=== PATIENT | male | born 1950 | race Caucasian/White ===

== ENCOUNTER → 2016-07-04 | Outpatient (CLI) | payer BC ==
--- NOTE | 2016-07-04 07:54 | DIAGNOSTIC IMAGING REPORT ---
ORBIT RADIOGRAPHS 3 VIEWS HISTORY: Pre-MRI pre-MRI screening. COMPARISON: None. FINDINGS: There are no radiopaque foreign bodies identified within the orbits. IMPRESSION: No radiopaque foreign bodies identified within the orbits. Electronically signed by: Jeremiah Pringle M.D. 07/04/2016 7:53 AM Dictated Date/Time: 07/04/2016 7:52 AM
--- NOTE | 2016-07-04 10:54 | DIAGNOSTIC IMAGING REPORT ---
MRI right knee RIGHT LOWER EXT JOINT WITHOUT CLINICAL HISTORY: RIGHT KNEE PAIN Right pain. TECHNIQUE: Multi axial MRI acquisition COMPARISON STUDY: None FINDINGS: Unremarkable signal characteristics of the osseous structures. No significant bone marrow replacing process. No significant joint effusion. No significant popliteal cyst. Mild degenerative thinning of the articular services throughout. No evidence for osteochondritis. No significant chondromalacia patella. Medial and lateral patellar retinaculum are intact. menisci demonstrates the lateral meniscus to be remarkable for moderate maceration of the posterior horn. A well-defined acute tear is not seen. There are findings of degenerative change rather significant of the medial compartment. There is truncation of the medial meniscus with evidence for maceration of the residual meniscal meniscal substance. Appears to been a prior tear of the apex and anterior horn of the medial meniscus. Components of this are degenerative. Medial lateral collateral ligaments are intact. IMPRESSION: 1. Considerable degenerative change medial joint compartment with loss of substance of the anterior and mid meniscus possibly representing a component of meniscal tear as well as chronic deterioration. 2. Moderate degenerative change posterior horn lateral meniscus. Electronically signed by: Jeremiah Pringle M.D. 07/04/2016 10:53 AM Dictated Date/Time: 07/04/2016 10:23 AM
== END | disposition home or self-care (01) ==
LOC: C.OPENMRI 08:09
DX: M25.561 Pain in right knee (principal); M25.861 Other specified joint disorders, right knee

== ENCOUNTER 2017-06-27 07:57 | Inpatient (IN) | payer BC, OTHER ==
[2017-06-05 10:52] VITALS: BMI 25.0
--- NOTE | 2017-06-05 11:31 | PAT Medication Instructions ---
Service Date Jun 05, 2017. Current Home Medication List Aspirin (Aspirin Ec), 81 MG PO QAM Atenolol (Tenormin), 25 MG PO QAM Simvastatin (Zocor), 40 MG PO QAM Medication Instructions For Your Scheduled Surgery - Take the following medications the morning of surgery with a sip of water: Aspirin (Aspirin Ec), 81 MG PO QAM Atenolol (Tenormin), 25 MG PO QAM Simvastatin (Zocor), 40 MG PO QAM If you have any questions please call us at [phone] or [phone] or [phone]
--- NOTE | 2017-06-05 12:11 | DIAGNOSTIC IMAGING REPORT ---
CHEST 2 VIEWS ROUTINE CLINICAL HISTORY: PAT preoperative evaluation COMPARISON STUDY: No previous studies for comparison. FINDINGS: The bones soft tissues and hemidiaphragms are normal. The cardiomediastinal silhouette is normal. The lungs are clear. The pulmonary vasculature is normal. Prior left shoulder arthroplasty IMPRESSION: Negative chest. The above report was generated using voice recognition software. It may contain grammatical, syntax or spelling errors. Electronically signed by: Jeremiah Pringle M.D. 06/05/2017 12:10 PM Dictated Date/Time: 06/05/2017 12:09 PM
[2017-06-05 12:47] LABS: BASO % 0.2 %; BASO ABS # 0.01 K/uL (0-0.2); EOS % 1.6 %; EOS ABS # 0.09 K/uL (0-0.5); HEMATOCRIT 40.3 % (42-52); IG# 0.02 K/uL (0.00-0.02); LYMPH % 15.2 %; LYMPH ABS # 0.85 K/uL (1.2-3.4); MEAN CELL VOLUME 88.2 fL (80-100); MEAN CORPUSCULAR HEMOGLOBIN 28.4 pg (25-34); MEAN CORPUSCULAR HGB CONC 32.3 g/dl (32-36); MEAN PLATELET VOLUME 9.1 fL (7.4-10.4); MONO % 7.9 %; MONO ABS # 0.44 K/uL (0.11-0.59); NEUT % 74.7 %; NEUT ABS # 4.18 K/uL (1.4-6.5); PLATELET COUNT 151 K/uL (130-400); RED CELL DISTRIBUTION WIDTH CV 14.8 % (11.5-14.5); RED CELL DISTRIBUTION WIDTH SD 47.3 fL (36.4-46.3); WHITE BLOOD COUNT 5.59 K/uL (4.8-10.8)
[2017-06-05 12:57] LABS: INR 0.9 (0.9-1.1); PTT PATIENT 24.6 SECONDS (21.0-31.0)
[2017-06-05 13:22] LABS: HEMOGLOBIN A1C 5.6 % (4.5-5.6)
[2017-06-05 13:44] LABS: ALBUMIN 3.6 gm/dl (3.4-5.0); CALCIUM 8.8 mg/dl (8.5-10.1); CREATININE 0.79 mg/dl (0.60-1.40); POTASSIUM 3.7 mmol/L (3.5-5.1)
--- NOTE | 2017-06-06 12:29 | HISTORY & PHYSICAL EXAMINATION ---
DATE OF ADMISSION: 06/27/2017 CHIEF COMPLAINT: Right knee pain. HISTORY OF PRESENT ILLNESS: Mr. Hays is a 67-year-old male with an 8-9 month history of right knee pain. The patient rates his pain a 9/10. He has pain with his daily activities. He has limited standing and walking tolerance. Pain is worse with weightbearing. The patient has had injections, NSAID and PT over the years without relief. He has failed conservative treatment and is scheduled for right knee replacement. PAST MEDICAL HISTORY: Heart disease with [place] in 2003. He denies diabetes or DVT. PAST SURGICAL HISTORY: ORIF left ankle and left total shoulder. SOCIAL HISTORY: The patient drinks 6-8 drinks per day. He denies tobacco use. He lives in a single story home. He is and works as a constable. FAMILY HISTORY: Negative for DVT. MEDICATIONS: Aspirin 81 mg daily, simvastatin 20 mg daily, Atenolol 25 mg daily. ALLERGIES: None. REVIEW OF SYSTEMS: See HPI. Ten other systems reviewed, all negative. PHYSICAL EXAMINATION: VITAL SIGNS: Height 5 foot 7, weight 167 pounds, BMI 26. GENERAL: This is a well-developed, well-nourished male who is alert and oriented x3. Mood and affect are appropriate. HEAD, EYES, EARS, NOSE, AND THROAT: Normocephalic, atraumatic. Mucous membranes are moist and intact. NECK: Supple without lymphadenopathy. HEART: Regular rate and rhythm without murmurs, rubs or gallops. LUNGS: Clear to auscultation without wheezes or rhonchi. ABDOMEN: Soft and nontender. Bowel sounds are equal and active. EXTREMITIES: No ecchymosis, redness or warmth. He has varus deformity. Range of motion is from 0-115 degrees. He has +1 effusion, +1 medial laxity. He is neurovascularly intact with +5/5 strength. X-RAY EXAMINATION: AP and lateral views show joint space narrowing and osteophyte formation. IMPRESSION: Degenerative joint disease, right knee. PLAN: The patient will be admitted for a right total knee arthroplasty. We will plan on aspirin for DVT prophylaxis. The patient is going to have [facility] for home physical therapy. Referral has been placed.
[~2017-06-27] VITALS: Ht 170.2 cm; Wt 74.5 kg
[2017-06-27] VITALS (8 sets, daily range): BP systolic 102–164; BP diastolic 63–89; PULSE 70–97; TEMP 36.6–36.8; O2SAT 94–98; Ht 170.2 cm; Wt 74.5 kg
[~2017-06-27 07:57] MED LIST: ACETAMINOPHEN 500 MG TAB PO SCH; ASPI81TA28 PO; ATEN-173 PO; BUPIVACAINE 0.25% 30 ML VIAL ONE; BUPIVACAINE 0.5 % 5 MG/1 ML PF 10ML VIAL ONE; CEFAZOLIN 1000MG IV PUSH 5 ML IV SCH; CeleBREX 200 MG CAP PO SCH; DEXAMETHASONE 4 MG TAB PO SCH; FAMOTIDINE 20 MG TAB PO SCH; GABAPENTIN 300 MG CAP PO SCH; LACTATED RINGER'S 1000ML 1,000 ML IV SCH; LACTATED RINGER'S 1000ML 500 ML IV SCH; LACTATED RINGER'S 1000ML IV SCH; METOCLOPRAMIDE HCL 10 MG TAB PO SCH; ROPIVACAINE 5MG/ML 30 ML 150 MG, BUPIVACAINE 0.5% MPF INJ 30 ML, EpINEphrine HCL INJ 0.... INFIL SCH; SIMV40TA2 PO
--- NOTE | 2017-06-27 08:31 | History & Physical Bridge Note ---
H&P Re-Evaluation Bridge Note: I have examined the patient, reviewed the History & Physical and in the interval since the performance of the History & Physical I have noted the following changes of clinical significance: No changes noted
[2017-06-27] MEDS ORDERED: FENTANYL CITRATE INJ 50 MCG/1 ML 2 ML VIAL ONE (08:39)
[2017-06-27] MEDS ORDERED: EpHEDrine SULFATE 50MG/5ML SYR ONE (08:41)
[2017-06-27] MEDS ORDERED: PHENYLEPHRINE 100MCG/ML 5ML SYR ONE (08:41)
[2017-06-27] MEDS ORDERED: PROPOFOL IV EMULSION 10 MG/ML 20 ML VIAL IV ONE ×2 (08:41→10:43)
[2017-06-27] MEDS ORDERED: LIDOCAINE HCL 2% 2 ML VIAL (20MG/ML) ONE (08:41)
[2017-06-27] MEDS ORDERED: BACITRACIN 50000 UNIT VIAL ONE (10:10)
[2017-06-27] MEDS ORDERED: POVIDONE-IODINE OP SOLN 30 ML BTL ONE (10:10)
[2017-06-27] MEDS ORDERED: ORTHO JOINT ANESTHETIC ONE (10:10)
[2017-06-27] MEDS: TRANEXAMIC ACID INJ 1,000 MG in SYRINGE 0 ML IV SCH ×2 (10:16→14:57)
[2017-06-27] MEDS ORDERED: PHENYLEPHRINE 100MCG/ML 5ML SYR IV PRN (10:45)
[2017-06-27] MEDS ORDERED: ONDANSETRON INJ 2 MG/ML 2 ML VIAL IV PRN ×2 (10:45→12:15)
[2017-06-27] MEDS ORDERED: KETOROLAC TROMETHAMINE 30 MG/ML VIAL IV. PRN (10:45)
[2017-06-27] MEDS ORDERED: EpHEDrine SULFATE INJ 50 MG/ML AMP IV PRN (10:45)
[2017-06-27] MEDS ORDERED: ATROPINE SULFATE 0.1 MG/ML 5ML SYR IV PRN (10:45)
[2017-06-27] MEDS ORDERED: HYDROmorphone INJ 0.5 MG/0.5 ML SYR IV PRN (10:45)
[2017-06-27] MEDS ORDERED: CEFAZOLIN SOD 1 GM VIAL ONE (10:49)
--- NOTE | 2017-06-27 11:28 | [facility] Post Operative Brief Note ---
Immediate Operative Summary Operative Date Jun 27, 2017. Pre-Operative Diagnosis Degenerative joint disease, right knee Post-Operative Diagnosis Degenerative joint disease, right knee Procedure(s) Performed TKA Surgeon Dr. Courtney Clinical Data Programmer Surgeon(s) Severo Mcmillan Estimated Blood Loss 10cc Findings Consistent with Post-Op Diagnosis Specimens Permanent Specimen A. Right Knee Bone and tissue Anesthesia Type MAC Spinal Regional Disposition Accompanied Pt To Recover: no Disposition:
--- NOTE | 2017-06-27 12:13 | OPERATIVE REPORT ---
DATE OF OPERATION: 06/27/2017 PREOPERATIVE DIAGNOSIS: Osteoarthritis, right knee. POSTOPERATIVE DIAGNOSIS: Osteoarthritis, right knee. PROCEDURE: Right total knee arthroplasty. SURGEON: Dr. Courtney. RAND BUTTING MACHINE OPERATOR: KIRT Olivarez ANESTHESIA: . COMPLICATIONS: None. IMPLANTS USED: Femoral size 4, tibia size 3, tibial poly 13, and patella size 36. OPERATION AND FINDINGS: Following induction of anesthesia, the patient's right leg was prepped and draped in the usual sterile manner. Limb was exsanguinated with an Esmarch bandage and tourniquet was inflated to 350 mmHg. A longitudinal incision was made anteriorly. Subcutaneous tissue was sharply dissected. Electrocautery was used for hemostasis. Prepatellar bursa was incised and median parapatellar incision was performed. Patella was everted and the knee was flexed. Fat pad was removed to aid in visualization and the anterior and posterior cruciate ligaments were removed. The medial face of the tibia was cleared of soft tissue first with a Bovie and a Tracy elevator. This tissue was retracted posteriorly using a blunt Hohmann. A Delacruz retractor was used to expose the synovium above on the anterior aspect of the femur and this was removed down to bone. The PSI guide was placed on the distal femur and two pins were placed anteriorly and kept in position and two additional pins were placed distally and removed. The distal femoral cutting block was placed in position and the distal femoral cut was used in the +0 setting. Next, the cutting block was removed and the femoral 4 block was placed in the distal end of the femur. Care was taken to ensure appropriate external rotation and feeler gauge was used to ensure no notching would occur. The femoral block was centered on the distal femur and in the medial and lateral direction and was fixed using two bone screws. The gold pins were then removed. The oscillating saw was used to create the bone cuts and the distal femoral cutting block was removed and the reciprocating saw was used to further trim the femoral cuts as well as a deep in the area for the trochlear groove. Next, posterior condyle remnants were removed. Following this, a meniscal clamp and knife were utilized to remove the anterior portion of both medial and lateral meniscus. The proximal tibia PSI guide was placed into position and the proximal tibial cutting guide was screwed into position. The extra medullary alignment guide was utilized to ensure appropriate alignment. The proximal tibia was cut and the proximal tibial cutting block was removed and this bone fragment was removed. The appropriate guide was used to perform the notch cut on the distal femur and a lamina antique furniture reproducer and a cochlear knife were utilized to finish both medial and lateral meniscectomies to remove any remnants of the posterior or anterior cruciate ligaments. Following this, the distal femoral component was impacted into position and blunt Rod was used to sublux the tibia anteriorly. The proximal tibia was sized and a 3 tibial tray was chosen as the size to be used. This was put into position and appropriate external rotation and a double check with extramedullary alignment guide was performed. The canal for the tibial stem was prepared first with a 17 mm drill and then the punch and a mallet and the trial tibial poly was placed. A 13 was chosen the size to be used. It was brought to extension and the patella was prepared with the patellar reamer. A 36 component was chosen the size to be used. The trial component was placed and knee was taken through a full range of motion and there was found to be no lateral subluxation of the tibia. No lateral release was required. The trials were all removed. The final components were obtained and assembled. Cement was mixed. The knee was thoroughly irrigated and the ortho mix was injected about the knee joint. The final components were cemented into position. After thoroughly suctioning and drying the bone ends, all excess cement was removed. The knee was held in extension while the cement hardened. The wound was irrigated and closed over a Hemovac drain. #1 Vicryl was used to close the extensor mechanism. Subcutaneous tissues closed using 0 Dexon. Skin was closed with sam. Sterile dressing of Adaptic, 4 x 4's, sterile Webril, and Sandeep was applied. The patient tolerated the procedure well. Due to the complex nature of the procedure, the entire surgery was performed with the operational assistance of KIRT Olivarez. The assistant hvac mechanic, under direct supervision, was involved in the actual performance of all aspects of the surgical procedure including hemostasis, tissue retraction and incision, instrument management, patient positioning, and wound closure. DISPOSITION: Recovery room, stable. I attest to the content of the Intraoperative Record and any orders documented therein. Any exception s are noted below.
[2017-06-27] MEDS ORDERED: TRAMADOL HCL 50 MG TAB PO PRN (12:15)
[2017-06-27] MEDS ORDERED: OXYCODONE HCL IR 5 MG TAB (IMMEDIATE RELEASE) PO PRN (12:15)
[2017-06-27] MEDS ORDERED: MAGNESIUM HYDROXIDE SUSP 30 ML UDC PO PRN (12:15)
[2017-06-27] MEDS ORDERED: MoRPHine SULFATE 2 MG/ML CARP IV PRN (12:15)
[2017-06-27] MEDS ORDERED: ALUMINUM/MAGNESIUM/SIMETH (MAALOX MAX) 30 ML UDC PO PRN (12:15)
--- NOTE | 2017-06-27 12:35 | DIAGNOSTIC IMAGING REPORT ---
R KNEE 1 OR 2 VIEWS ROUTINE CLINICAL HISTORY: AP/LATERAL IN PACU RIGHT KNEE COMPARISON: None DISCUSSION: Total joint replacement in good position. Good contact between prosthetic and underlying bone. Surgical drains are in position. Expected soft tissue postoperative change IMPRESSION: Anatomic alignment status post total right knee arthroplasty The above report was generated using voice recognition software. It may contain grammatical, syntax or spelling errors. Electronically signed by: Jeremiah Pringle M.D. 06/27/2017 12:33 PM Dictated Date/Time: 06/27/2017 12:33 PM
--- NOTE | 2017-06-27 13:47 | Anesthesiology Progress Note ---
Anesthesia Post Op Note Date & Time Jun 27, 2017 at 13:47 Vital Signs Pain Intensity: 0 Vital Signs Past 12 Hours Date Time Temp Pulse Resp B/P (MAP) Pulse Ox O2 Delivery O2 Flow Rate FiO2 06/27/17 13:38 72 19 98 06/27/17 13:38 72 19 06/27/17 13:36 138/76 06/27/17 13:33 82 19 06/27/17 13:33 80 19 97 06/27/17 13:31 127/75 06/27/17 13:28 71 23 97 06/27/17 13:28 71 23 06/27/17 13:27 73 21 06/27/17 13:27 72 21 97 06/27/17 13:26 133/82 06/27/17 13:24 80 19 98 06/27/17 13:24 78 19 06/27/17 13:21 134/79 06/27/17 13:19 71 18 06/27/17 13:19 70 18 97 06/27/17 13:16 131/77 06/27/17 13:14 69 19 06/27/17 13:14 69 19 97 06/27/17 13:11 130/80 06/27/17 13:09 76 17 06/27/17 13:09 77 17 97 06/27/17 13:06 119/74 06/27/17 13:04 69 17 98 06/27/17 13:04 68 17 06/27/17 13:01 131/77 06/27/17 12:59 72 23 97 06/27/17 12:59 73 23 06/27/17 12:56 129/67 06/27/17 12:56 36.6 72 20 131/77 96 Nasal Cannula 2 06/27/17 12:54 70 17 06/27/17 12:54 71 17 97 06/27/17 12:53 73 20 06/27/17 12:53 75 20 97 06/27/17 12:51 134/77 06/27/17 12:48 66 17 97 06/27/17 12:48 67 17 06/27/17 12:46 122/77 06/27/17 12:43 73 20 06/27/17 12:43 73 20 97 06/27/17 12:42 69 17 119/76 98 06/27/17 12:42 68 17 06/27/17 12:37 75 17 06/27/17 12:37 75 17 94 06/27/17 12:36 133/78 06/27/17 12:32 71 18 97 06/27/17 12:32 70 18 06/27/17 12:31 126/78 06/27/17 12:30 74 13 98 06/27/17 12:30 71 13 06/27/17 12:26 133/75 06/27/17 12:25 69 20 96 06/27/17 12:25 71 20 06/27/17 12:21 109/84 06/27/17 12:20 79 21 98 06/27/17 12:20 79 21 06/27/17 12:16 117/70 06/27/17 12:15 78 23 96 06/27/17 12:15 72 16 117/73 98 Oxymask 8 06/27/17 12:15 71 23 06/27/17 12:11 124/71 06/27/17 12:10 71 22 96 06/27/17 12:10 70 22 06/27/17 12:06 117/73 06/27/17 12:05 36.8 72 16 117/73 98 Oxymask 8 06/27/17 12:05 67 19 06/27/17 12:05 68 19 98 06/27/17 08:41 36.6 77 18 164/89 98 Room Air Notes Mental Status: alert / awake / arousable, participated in evaluation Pt Amnestic to Procedure: Yes Nausea / Vomiting: adequately controlled Pain: adequately controlled Airway Patency, RR, SpO2: stable & adequate BP & HR: stable & adequate Hydration State: stable & adequate Anesthetic Complications: no major complications apparent
[2017-06-27] MEDS ORDERED: MoRPHine SULFATE 10 MG/ML CARP/VIAL IV PRN (15:00)
[2017-06-27] MEDS ORDERED: MoRPHine SULFATE 4 MG/ML 1 ML CARP\\VIAL IV PRN (15:00)
[2017-06-27] MEDS: ACETAMINOPHEN 500 MG TAB PO SCH ×2 (15:00→21:56)
[2017-06-27] MEDS: D5W AND 1/2NSS + 20MEQ KCL 1,000 ML IV SCH (15:36)
[2017-06-27] MEDS: FERROUS GLUCONATE 324 MG TAB PO SCH (18:02)
[2017-06-27] MEDS: CEFAZOLIN IV 1,000 MG in SYRINGE 0 ML IV SCH (18:02)
[2017-06-27] MEDS: DOCUSATE SODIUM 100 MG CAP PO SCH (21:00)
[2017-06-27] MEDS: CeleBREX 200 MG CAP PO SCH (21:00)
[2017-06-27] MEDS ORDERED: SENNA 8.6 MG TAB PO SCH (21:00)
[2017-06-27] MEDS: ASPIRIN 81 MG ECTAB PO SCH (21:08)
[2017-06-28] MEDS: D5W AND 1/2NSS + 20MEQ KCL 1,000 ML IV SCH ×2 (00:46→10:17)
[2017-06-28] MEDS: CEFAZOLIN IV 1,000 MG in SYRINGE 0 ML IV SCH (01:50)
[2017-06-28 03:27] VITALS: BP 106/67; PULSE 72; TEMP 36.7; O2SAT 96
[2017-06-28] MEDS: ACETAMINOPHEN 500 MG TAB PO SCH ×2 (05:50→13:55)
[2017-06-28 07:03] VITALS: BP 123/74; PULSE 64; TEMP 36.7; O2SAT 98
[2017-06-28 07:20] LABS: HEMATOCRIT 30.9 % (42-52); HEMOGLOBIN 10.1 g/dL (14.0-18.0); MEAN CELL VOLUME 85.6 fL (80-100); MEAN CORPUSCULAR HGB CONC 32.7 g/dl (32-36); MEAN PLATELET VOLUME 8.9 fL (7.4-10.4); PLATELET COUNT 146 K/uL (130-400); RED CELL DISTRIBUTION WIDTH CV 15.7 % (11.5-14.5); RED CELL DISTRIBUTION WIDTH SD 48.9 fL (36.4-46.3); WHITE BLOOD COUNT 13.22 K/uL (4.8-10.8)
--- NOTE | 2017-06-28 07:46 | Orthopedic Progress Note ---
Orthopedic Progress Note Date of Service Jun 28, 2017. Subjective Post OP Day: 1 Reports: feeling well Objective N/V intact, dressing C/D/I (Hemovac in place), toes mobile Date Time Temp Pulse Resp B/P (MAP) Pulse Ox O2 Delivery O2 Flow Rate FiO2 06/28/17 07:03 36.7 64 19 123/74 (90) 98 Room Air 06/28/17 03:27 36.7 72 16 106/67 (80) 96 Room Air 06/27/17 23:15 Room Air 06/27/17 23:04 36.8 80 18 102/63 (76) 94 Room Air 06/27/17 20:26 36.6 97 18 134/78 (96) 94 Room Air 06/27/17 16:58 36.7 76 18 124/71 (88) 94 Room Air 06/27/17 15:51 36.7 71 18 125/66 (85) 95 Room Air 06/27/17 14:50 70 18 130/71 (90) 95 Room Air 06/27/17 14:20 71 16 124/75 (91) 95 Room Air 06/27/17 13:50 95 Room Air 06/27/17 13:50 36.6 78 16 134/77 (96) 95 Room Air 06/27/17 13:50 95 Room Air 06/27/17 13:38 72 19 98 06/27/17 13:38 72 19 06/27/17 13:36 138/76 06/27/17 13:33 82 19 06/27/17 13:33 80 19 97 06/27/17 13:31 127/75 06/27/17 13:28 71 23 97 06/27/17 13:28 71 23 06/27/17 13:27 73 21 06/27/17 13:27 72 21 97 06/27/17 13:26 133/82 06/27/17 13:24 80 19 98 06/27/17 13:24 78 19 06/27/17 13:21 134/79 06/27/17 13:19 71 18 06/27/17 13:19 70 18 97 06/27/17 13:16 131/77 06/27/17 13:14 69 19 06/27/17 13:14 69 19 97 06/27/17 13:11 130/80 06/27/17 13:09 76 17 06/27/17 13:09 77 17 97 06/27/17 13:06 119/74 06/27/17 13:04 69 17 98 06/27/17 13:04 68 17 06/27/17 13:01 131/77 06/27/17 12:59 72 23 97 06/27/17 12:59 73 23 06/27/17 12:56 129/67 06/27/17 12:56 36.6 72 20 131/77 96 Nasal Cannula 2 06/27/17 12:54 70 17 06/27/17 12:54 71 17 97 06/27/17 12:53 73 20 06/27/17 12:53 75 20 97 06/27/17 12:51 134/77 06/27/17 12:48 66 17 97 06/27/17 12:48 67 17 06/27/17 12:46 122/77 06/27/17 12:43 73 20 06/27/17 12:43 73 20 97 06/27/17 12:42 69 17 119/76 98 06/27/17 12:42 68 17 06/27/17 12:37 75 17 06/27/17 12:37 75 17 94 06/27/17 12:36 133/78 06/27/17 12:32 71 18 97 06/27/17 12:32 70 18 06/27/17 12:31 126/78 06/27/17 12:30 74 13 98 06/27/17 12:30 71 13 06/27/17 12:26 133/75 06/27/17 12:25 69 20 96 06/27/17 12:25 71 20 06/27/17 12:21 109/84 06/27/17 12:20 79 21 98 06/27/17 12:20 79 21 06/27/17 12:16 117/70 06/27/17 12:15 78 23 96 06/27/17 12:15 72 16 117/73 98 Oxymask 8 06/27/17 12:15 71 23 06/27/17 12:11 124/71 06/27/17 12:10 71 22 96 06/27/17 12:10 70 22 06/27/17 12:06 117/73 06/27/17 12:05 36.8 72 16 117/73 98 Oxymask 8 06/27/17 12:05 67 19 06/27/17 12:05 68 19 98 06/27/17 08:41 36.6 77 18 164/89 98 Room Air Laboratory Results 24 Hours: Test 06/28/17 07:02 Hematocrit 30.9 % Hemoglobin 10.1 g/dL Assessment & Plan Assessment: 67 yo male stable POD #1 s/p right TKA Plan: 1. Med management 2. DVT prophylaxis- ASA, SCDs 3. PT/OT 4. D/C planning- home w/ HH today or tomorrow
[2017-06-28 07:48] LABS: CREATININE 0.83 mg/dl (0.60-1.40); POTASSIUM 4.1 mmol/L (3.5-5.1)
[2017-06-28] MEDS ORDERED: ONDA8TAB12 PO (07:48)
[2017-06-28] MEDS ORDERED: CLB200 PO (07:48)
[2017-06-28] MEDS ORDERED: ASPEC81 PO (07:48)
[2017-06-28] MEDS ORDERED: RXC5 PO (07:48)
[2017-06-28] MEDS ORDERED: ACET-24 PO (07:48)
--- NOTE | 2017-06-28 07:50 | Discharge Instructions ---
Discharge Instructions Date of Service Jun 28, 2017. Admission Reason for Admission: Right Knee Osteoarthritis Discharge Discharge Diagnosis / Problem: Right knee arthritis Discharge Goals Goal(s): Decrease discomfort, Improve function Activity Recommendations Activity Limitations: as noted below Weightbearing Status: Right weightbearing (as tolerated) . Instructions / Follow-Up Instructions / Follow-Up ACTIVITY RECOMMENDATIONS: SELF CARE INSTRUCTIONS AFTER TOTAL KNEE REPLACEMENT A. You may need to continue a physical therapy program after discharge from the hospital. There are several options available to you. Your doctor will assist you in selecting the best one for you. 1. An out-patient facility 2 to 3 times a week for therapy or home therapy. 2. Continue working on all exercises taught to you in the hospital. Your goals should be to increase bending of your knee to 90 degrees and beyond and to fully straighten your knee. B. You may progress at your own pace from walking with a walker or crutches to a cane; then to no assistive devices. C. Make walking a part of your daily routine. Be up as much as comfortable with rest periods throughout the day. Rest with leg elevation is very important. Use the ice wrap frequently for the first 3-4 weeks. D. There are no restrictions on activities. You may ride in a car, shop, participate in msw and all social activities. E. Wear the long elastic stockings (MERLINE hose) 20 hours a day for 2 weeks after surgery. They can be removed several times a day for laundering and for a bath. F. You may shower, no tub baths until cleared by your doctor. SPECIAL CARE INSTRUCTIONS: VERY IMPORTANT TO READ AND REVIEW A. There are a few signs you need to watch for after you are home. Call [facility] if you notice any of the followin. Increased severe knee pain. Some pain is expected especially when you exercise. 2. Increased swelling in your leg or knee; pain or swelling of the calf muscle in either lower leg. 3. Any fluid drainage from the incision. 4. Shortness of breath or chest pain. B. Please call [facility] at if you have any concerns or questions about your operation or recovery. The doctor or his nurse will return your call promptly. C. You must take antibiotics before dental work, bladder, bowel or other surgery. Your doctor will provide you with a permanent care to carry describing this precaution. IMPORTANT: * REMEMBER TO TAKE ASPIRIN, 81 MG, TWICE DAILY FOR 4 WEEKS UNLESS OTHERWISE DIRECTED. THIS IS YOUR BLOOD THINNER. * HIGH RISK PATIENTS MAY BE PRESCRIBED A STRONGER BLOOD THINNER. THIS WILL BE PROVIDED AT DISCHARGE. * CALL IF INCREASED PAIN, REDNESS, DRAINAGE OR FEVER GREATER THAT 101. * WEAR MERLINE HOSE 20 HOURS PER DAY FOR 2 WEEKS. Silverlon- This is a large adhesive bandage that contains silver ions. This helps your incision heal by fighting off bacteria and protecting it from the outside environment. You are permitted to shower with this dressing. This will remain on your incision for 7 days and then should be removed. Some visible blood or drainage through the dressing window is normal. If there is significant drainage or leaking noted before the 7 days notify your doctor's office immediately. Once removed, keep incision clean and dry. If there is any drainage or redness noted, please call your surgeon. When removing silverlon, maintain zipline closure until follow-up with MD. FOLLOW UP VISIT: If appointment is not already scheduled: Please call [facility] to make a follow-up appointment for 2 weeks after your surgery at . Current Hospital Diet Patient's current hospital diet: AHA Diet (Heart Healthy) Discharge Diet Recommended Diet: AHA Diet (Heart Healthy) Procedures Procedures Performed: Right Total Knee arthroplasty Pending Studies Studies pending at discharge: no Laboratory Results Hemoglobin A1c Test 06/05/17 11:48 Range/Units Estimated Average Glucose 114 mg/dl Hemoglobin A1c 5.6 4.5-5.6 % Medical Emergencies . Who to Call and When: Medical Emergencies: If at any time you feel your situation is an emergency, please call 911 immediately. . Non-Emergent Contact Non-Emergency issues call your: Surgeon Call Non-Emergent contact if: temperature is above 101.5, your pain is not controlled, wound has increased drainage, wound has increased redness . "Provider Documentation" section prepared by Reji Colon PA-C. . VTE Core Measure Inpt VTE Proph given/why not?: Other Anticoagulation (ASA), T.E.D. Stockings, SCD's [place] Drug Monitoring Program Search Results: patient reviewed within database, no issues identified
[2017-06-28] MEDS: CeleBREX 200 MG CAP PO SCH ×2 (08:31→08:39)
[2017-06-28] MEDS: FERROUS GLUCONATE 324 MG TAB PO SCH ×2 (08:31→13:54)
[2017-06-28] MEDS: ASPIRIN 81 MG ECTAB PO SCH (08:32)
[2017-06-28] MEDS: DOCUSATE SODIUM 100 MG CAP PO SCH ×2 (08:32→08:39)
[2017-06-28] MEDS ORDERED: SIMVASTATIN 40 MG TAB PO SCH (09:00)
[2017-06-28] MEDS ORDERED: MULTIVITAMIN TAB PO SCH (09:00)
--- NOTE | 2017-06-28 09:54 | Anesthesiology Progress Note ---
Anesthesia Post Op Note Date & Time Jun 28, 2017 at 09:53 Vital Signs Vital Signs Past 12 Hours Date Time Temp Pulse Resp B/P (MAP) Pulse Ox O2 Delivery O2 Flow Rate FiO2 06/28/17 09:31 18 06/28/17 08:24 Room Air 06/28/17 07:03 36.7 64 19 123/74 (90) 98 Room Air 06/28/17 03:27 36.7 72 16 106/67 (80) 96 Room Air 06/27/17 23:15 Room Air 06/27/17 23:04 36.8 80 18 102/63 (76) 94 Room Air Notes Mental Status: alert / awake / arousable, participated in evaluation Pt Amnestic to Procedure: Yes Nausea / Vomiting: adequately controlled Pain: adequately controlled Airway Patency, RR, SpO2: stable & adequate BP & HR: stable & adequate Hydration State: stable & adequate Neuraxial Anesthesia: was administered, sensory block resolved Anesthetic Complications: no major complications apparent
[2017-06-28 12:00] VITALS: BP 119/73; PULSE 57; TEMP 36.6; O2SAT 98
[2017-06-28 16:03] VITALS: BP 119/73; PULSE 57; TEMP 36.6; O2SAT 98
--- NOTE | 2017-07-02 13:09 | DISCHARGE SUMMARY ---
DISCHARGE DIAGNOSIS: Degenerative joint disease, right knee. SECONDARY DIAGNOSES: Heart disease with myocardial infarction in 2004. CONSULTS: None. COMPLICATIONS: None. PROCEDURES: Right total knee arthroplasty performed by Dr. Courtney on 06/27/2017. BRIEF HISTORY: As dictated in the history and physical. HOSPITAL SUMMARY: The patient was admitted on the above-noted date and had the above-noted surgery performed which he tolerated well. On the first postoperative day, he was feeling well and had no complaints. Neurovascularly was intact. Dressings clean, dry and intact. Toes were mobile. Vital signs were stable. He was afebrile. Hemoglobin was 10.1. He was started on physical therapy protocol and continued on DVT prophylaxis and pain management. In physical therapy, he had ambulated 500 feet with a rolling walker without any problems and had gone up and down 6 steps with a hand rail. His gait endurance was good. His range of motion was approximately 85 degrees. He was otherwise remaining stable and it was felt he could be discharged to home. For further review, please see chart. LAB AND X-RAY DATA: As per chart. DISCHARGE INSTRUCTIONS: The patient was discharged to home in satisfactory condition on 06/28/2017. DIET: Heart healthy. ACTIVITY: Weightbearing as tolerated right lower extremity. Follow [facility] instruction sheets and special care instructions as noted. Follow up with Dr. Courtney in 2 weeks. The patient to call for appointment if one has not been made for you. DISCHARGE MEDICATIONS: Acetaminophen 1000 mg p.o. q.8 hours for 14 days, aspirin 81 mg p.o. b.i.d. for 28 days afterwards stop taking twice daily and resume once daily dosing, Celebrex 200 mg p.o. b.i.d., Zofran 8 mg p.o. q.8 hours p.r.n., oxycodone 5-10 mg p.o. q.4-6 hours p.r.n. Resume atenolol 25 mg p.o. q.a.m. and simvastatin 40 mg p.o. q.a.m.
== END 2017-06-28 16:35 | disposition home health service (06) | DRG 470 ==
LOC: C.ACU 07:57 → C.MSN 08:20 → ENRESERV 13:17
PROC: 0SRC0J9 Replacement of Right Knee Joint with Synthetic Substitute, Cemented, Open Approach (ICD-10-PCS; principal; 2017-06-27 10:45)
DX: M17.11 Unilateral primary osteoarthritis, right knee (principal); Z79.82 Long term (current) use of aspirin; Z79.899 Other long term (current) drug therapy